=== PATIENT | female | born 1930 | race Caucasian/White ===

== ENCOUNTER 2016-10-02 16:40 | Emergency (ER) | payer OTHER ==
[2016-10-02 17:57] VITALS: BP 156/60; PULSE 83; TEMP 98.3; BMI 35.2
--- NOTE | 2016-10-02 18:09 | PDOC ---
History of Present Illness - General History Source: Patient, Family Exam Limitations: No Limitations - History of Present Illness Initial Comments: 10/02/16 18:19 The patient is a 86 year old female, with a significant past medical history of aortic valve replacement, vertigo, anemia, asthma, hypertension, hypercholesterolemia, who presents to the emergency department with generalized weakness and generalized lower extremity aches for approx. three days. The patient states there has been confusion at her pharmacy and she has not been able to receive her blood pressure medication (Spironolactone, Metoprolol, Amlodipine) which she ran out of for approx. 3 days. The patient reports she has not been feeling well and has been feeling weak and achy in the legs. The patient describes her legs as feeling heavy. She reports these symptoms usually occur when she has not been taking her blood pressure medications. The patient reports associated symptoms of dry cough and dizziness. She denies recent fevers, chills, or headache. She denies recent nausea, vomit, diarrhea or constipation. She denies recent chest pain or shortness of breath. Allergies: Penicillins Past surgical history: Appendectomy, Heart valve replacement, Primary Care Physician: Dr. Janett Manzanares ([facility]) <Rickey Mendoza - Last Filed: 10/02/16 19:56> <Faviola Beach - Last Filed: 10/02/16 20:25> - General Chief Complaint: Cold Symptoms Stated Complaint: WEAKNESS Past History <Rickey Mendoza - Last Filed: 10/02/16 19:56> - Past Medical History Anemia: Yes HTN: Yes Hypercholesterolemia: Yes - Surgical History Appendectomy: Yes Cardiac Surgery: Yes ("HEART VALVE REPLACEMENT") - Immunization History Immunization Up to Date: Yes - Psycho/Social/Smoking Cessation Hx Suicidal Ideation: No Smoking History: Never smoked Have you smoked in the past 12 months: No Information on smoking cessation initiated: No Hx Alcohol Use: No Drug/Substance Use Hx: No Substance Use Type: None <Faviola Beach - Last Filed: 10/02/16 20:25> - Past Medical History Allergies/Adverse Reactions: Allergies Allergy/AdvReac Type Severity Reaction Status Date / Time Penicillins Allergy Verified 10/02/16 17:46 Home Medications: Ambulatory Orders Amlodipine Besylate 0 mg PO ASDIR 10/02/16 Aspirin [ASA -] 81 mg PO DAILY 10/02/16 Budesonide [Pulmicort 0.25 mg -] 1 neb PO BID 10/02/16 Diclofenac Sodium 0 mg PO ASDIR 10/02/16 Gabapentin 0 mg PO ASDIR 10/02/16 Hydralazine HCl 0 mg PO ASDIR 10/02/16 Meclizine HCl [Antivert -] 0 mg PO DAILY 10/02/16 Metoprolol Succinate [Toprol Xl -] 25 mg PO DAILY 10/02/16 Nabumetone 0 mg PO ASDIR 10/02/16 Pantoprazole Sodium [Protonix -] 20 mg PO DAILY 10/02/16 Rosuvastatin Calcium [Crestor] 0 mg PO DAILY 10/02/16 Sulfamethoxazole/Trimethoprim [Bactrim Ds -] 1 tab PO BID #14 tablet 10/02/16 Review of Systems - Review of Systems Comments:: 10/02/16 18:21 GENERAL/CONSTITUTIONAL: +Generalized weakness. No fever or chills. HEAD, EYES, EARS, NOSE AND THROAT: No change in vision. No ear pain or discharge. No sore throat. CARDIOVASCULAR: No chest pain or shortness of breath. RESPIRATORY: +Dry cough. No wheezing or hemoptysis. GASTROINTESTINAL: No nausea, vomiting, diarrhea or constipation. GENITOURINARY: No dysuria, frequency, or change in urination. MUSCULOSKELETAL: +Generalized lower extremity aches. No neck or back pain. SKIN: No rash NEUROLOGIC: +Dizziness. No headache, loss of consciousness, or change in strength/sensation. ENDOCRINE: No increased thirst. No abnormal weight change. HEMATOLOGIC/LYMPHATIC: No easy bleeding, or history of blood clots. ALLERGIC/IMMUNOLOGIC: No hives or skin allergy. <Rickey Mendoza - Last Filed: 10/02/16 19:56> *Physical Exam - Vital Signs Last Vital Signs Temp Pulse Resp BP Pulse Ox 98.3 F 83 17 156/60 99 10/02/16 17:54 10/02/16 17:54 10/02/16 17:54 10/02/16 17:54 10/02/16 17:54 - Physical Exam Comments: 10/02/16 18:23 GENERAL: Awake, alert, and fully oriented, in no acute distress HEAD: No signs of trauma EYES: PERRLA, EOMI, sclera anicteric, conjunctiva clear ENT: Auricles normal inspection, hearing grossly normal, nares patent, oropharynx clear without exudates. Moist mucosa NECK: Normal ROM, supple, no lymphadenopathy, JVD, or masses LUNGS: Breath sounds equal, clear to auscultation bilaterally. No wheezes, and no crackles HEART: +Systolic heart murmur. Regular rate and rhythm, no rubs or gallops ABDOMEN: Soft, nontender, normoactive bowel sounds. No guarding, no rebound. No masses EXTREMITIES: Normal range of motion, no edema. No clubbing or cyanosis. No cords, erythema, or tenderness NEUROLOGICAL: Cranial nerves II through XII grossly intact. Normal speech, normal gait SKIN: Warm, Dry, normal turgor, no rashes or lesions noted. <Rickey Mendoza - Last Filed: 10/02/16 19:56> - Vital Signs Last Vital Signs Temp Pulse Resp BP Pulse Ox 98.3 F 83 17 156/60 99 10/02/16 17:54 10/02/16 17:54 10/02/16 17:54 10/02/16 17:54 10/02/16 17:54 <Faviola Beach - Last Filed: 10/02/16 20:25> ED Treatment Course - LABORATORY CBC & Chemistry Diagram: 10/02/16 18:56 10/02/16 18:56 - RADIOLOGY Radiograph Interpretation: 10/02/16 19:56 Chest X-Ray Reported by Dr. Rafael Gilbert Impression - Borderline cardiomegaly. No acute lung disease is present. 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 ( metoprolol 50 , spironolactone, Amlodipine 5, all ran out) only has been taking hydralazine 50 bid. on exam awake alert lungs clear bilat heart regular systolic murmur abd soft NT . ext wwp nuero alert oriented x 3, 5/5 all four ext. plan r/o anemia electorlyte abnormality infection such as pna , uti, cxr ekg labs . daughter at bedside states pharmacy issue has been resolved she will get her meds today. 10/02/16 20:18 pt feeling better. cxr normal. labs unremarkable. except mild cbc wbc elevation. has urinary frequency. will treat for uti. ua and culture sent. will dc <Faviola Beach - Last Filed: 10/02/16 20:25> *DC/Admit/Observation/Transfer - Attestations Scribe Attestion: 10/02/16 18:25 Documentation prepared by Rickey Mendoza, acting as medical collector for Faviola Beach MD. <Rickey Mendoza - Last Filed: 10/02/16 19:56> <Faviola Beach - Last Filed: 10/02/16 20:25> Diagnosis at time of Disposition: Urinary tract infection, Hypertension - Discharge Dispostion Disposition: HOME Condition at time of disposition: Improved - Prescriptions Prescriptions: Sulfamethoxazole/Trimethoprim [Bactrim Ds -] 1 tab PO BID #14 tablet - Referrals Referrals: STAFF,NOT ON [Primary Care Provider] - - Patient Instructions Printed Discharge Instructions: Urinary Tract Infection, High Blood Pressure Additional Instructions: you should take bactrim twice daily x 7 days for urinary tract infection. continue your blood pressure medications. reutrn for any problems or concerns follow up with your primary doctor next week. call to schedule.
[2016-10-02 19:00] LABS: MCH 32.3 pg (25.7-33.7); MCHC 32.6 g/dl (32.0-36.0); MEAN CELL VOLUME 99.3 fl (80-96); MEAN PLT VOLUME 8.7 fl (7.5-11.1); PLATELET COUNT 255 K/MM3 (134-434); RDW 12.6 % (11.6-15.6); WHITE BLOOD COUNT 15.6 K/mm3 (4.0-10.0)
[2016-10-02 19:30] LABS: ALBUMIN 3.5 g/dl (3.4-5.0); ANION GAP 8 (8-16); BILIRUBIN,TOTAL 0.6 mg/dL (0.2-1.0); CALCIUM 9.2 mg/dL (8.5-10.1); CO2 26 mmol/L (21-32); CREATININE 1.1 mg/dL (0.55-1.02); GLUCOSE,RANDOM 96 mg/dL (74-106); SGPT/ALT 26 U/L (12-78); TOT PROT 7.1 g/dl (6.4-8.2)
[2016-10-02 19:31] LABS: ALK PHOS 102 U/L (45-117)
[2016-10-02 19:42] LABS: SGOT/AST 28 U/L (15-37)
[2016-10-02 20:03] LABS: PLATELET ESTIMATE ADEQUATE (NORMAL); TOTAL CELLS COUNTED 100
[2016-10-02 20:04] LABS: BASOPHIL (MANUAL) 1 % (0-2.0)
[2016-10-02 21:06] LABS: URINE APPEARANCE CLEAR; URINE BILIRUBIN NEGATIVE (NEGATIVE); URINE BLOOD NEGATIVE (NEGATIVE); URINE COLOR STRAW; URINE GLUCOSE (UA) NEGATIVE (NEGATIVE); URINE KETONE NEGATIVE (NEGATIVE); URINE LEUK ESTERASE NEGATIVE (NEGATIVE); URINE NITRITE NEGATIVE (NEGATIVE); URINE PROTEIN NEGATIVE (NEGATIVE); URINE UROBILINOGEN NEGATIVE mg/dL (0.2-1.0)
--- NOTE | 2016-10-03 12:26 | EKG ---
Test Reason : Blood Pressure : / mmHG Vent. Rate : 078 BPM Atrial Rate : 078 BPM P-R Int : 162 ms QRS Dur : 148 ms QT Int : 432 ms P-R-T Axes : 062 060 047 degrees QTc Int : 492 ms NORMAL SINUS RHYTHM WITH SINUS ARRHYTHMIA POSSIBLE LEFT ATRIAL ENLARGEMENT RIGHT BUNDLE BRANCH BLOCK ABNORMAL ECG NO PREVIOUS ECGS AVAILABLE Confirmed by MD FAIZA, LYNETTE ([id number]) on 10/03/2016 12:26:15 PM Referred By: Confirmed By:LYNETTE KENDALL MD
== END 2016-10-02 20:54 | disposition home or self-care (01) ==
LOC: JER 16:40
DX: N39.0 Urinary tract infection, site not specified (principal); I10 Essential (primary) hypertension; Z95.2 Presence of prosthetic heart valve; E78.00 Pure hypercholesterolemia, unspecified
CPT/HCPCS: 36415; 71020-TC; 80053; 81003; 85025; 87086; 93005; 93010; 99282-25